=== PATIENT | female | born 1995 | race Caucasian/White ===

== ENCOUNTER 2018-05-29 15:55 | Emergency (ER) | payer OTHER ==
[2018-05-29] MEDS ORDERED: ONDANSETRON HCL INJ/PF 4 MG/2 ML SDV IV ONE (17:46)
[2018-05-29] MEDS ORDERED: NORMAL SALINE 1000 ML 1,000 ML IV ONE (17:46)
[2018-05-29] MEDS ORDERED: KETOROLAC TROMETHAMINE INJ/PF 30 MG/1 ML SDV IV ONE (17:46)
[2018-05-29] MEDS ORDERED: FENTANYL CITRATE INJ/PF 100 MCG/2 ML AMPUL IV ONE (17:46)
--- NOTE | 2018-05-29 17:49 | ER Document Report ---
ED Medical Screen (RME) - General Chief Complaint: Abdominal Pain Stated Complaint: LEFT SIDE PAIN Time Seen by Provider: 05/29/18 17:42 Notes: Chief complaint: Left flank pain History of complain:( obtained from----patient) 22 years old female presents today with left flank pain since this morning around 4:00 with a history of kidney stone. Denies any dysuria frequency urgency denies any fever chills but nauseous. PHYSICAL EXAMINATION: GENERAL: Well-appearing, well-nourished and in no acute distress. HEAD: Atraumatic, normocephalic. EYES: Pupils equal round and reactive to light, extraocular movements intact, conjunctiva are normal. ENT: Nares patent, oropharynx clear without exudates. Moist mucous membranes. NECK: Normal range of motion, supple without lymphadenopathy LUNGS: Breath sounds clear to auscultation bilaterally and equal. No wheezes rales or rhonchi. HEART: Regular rate and rhythm without murmurs ABDOMEN: Abdomen is diffusely tender more so on the left side of the abdomen with guarding. Positive left flank tenderness Dictation was performed using [employer] voice recognition software - Related Data Allergies/Adverse Reactions: No Known Allergies Allergy (Unverified 05/29/18 15:59) Physical Exam - Vital signs Vitals: Temp Pulse Resp BP Pulse Ox 99.1 F 81 16 128/74 H 95 05/29/18 16:23 05/29/18 16:23 05/29/18 16:23 05/29/18 16:23 05/29/18 16:23 Course - Vital Signs Vital signs: Temp Pulse Resp BP Pulse Ox 99.1 F 81 16 128/74 H 95 05/29/18 16:23 05/29/18 16:23 05/29/18 16:23 05/29/18 16:23 05/29/18 16:23
[2018-05-29 18:29] LABS: ABSOLUTE EOSINOPHILS # (AUTO) 0.2 10^3/uL (0.0-0.6); ABSOLUTE MONOCYTES (AUTO) 0.8 10^3/uL (0.1-1.4); ABSOLUTE NEUT (AUTO) 7.5 10^3/uL (1.7-8.2); BASOPHILS % (AUTO) 0.4 % (0-2); EOSINOPHILS % (AUTO) 1.5 % (0-6); HEMATOCRIT 41.2 % (36.0-47.0); LYMPHOCYTES % (AUTO) 18.8 % (13-45); MEAN CORPUSCULAR HEMOGLOBIN 28.3 pg (27.0-33.4); MEAN CORPUSCULAR HGB CONC 33.9 g/dL (32.0-36.0); MEAN CORPUSCULAR VOLUME 84 fl (80-97); MONOCYTES % (AUTO) 7.9 % (3-13); PLATELET COUNT 426 10^3/uL (150-450); RED BLOOD COUNT 4.93 10^6/uL (3.72-5.28); RED CELL DISTRIBUTION WIDTH 14.7 % (11.5-14.0); SEGMENTED NEUTROPHILS % (AUTO) 71.4 % (42-78); TOTAL CELLS COUNTED % (AUTO) 100 %; WHITE BLOOD COUNT 10.4 10^3/uL (4.0-10.5)
[2018-05-29 18:46] LABS: ALANINE AMINOTRANSFERASE 18 U/L (9-52); ALBUMIN 5.1 g/dL (3.5-5.0); ALKALINE PHOSPHATASE 115 U/L (38-126); ANION GAP 12 (5-19); ASPARTATE AMINO TRANSFERASE 20 U/L (14-36); BILIRUBIN,DIRECT 0.2 mg/dL (0.0-0.4); BILIRUBIN,TOTAL 0.4 mg/dL (0.2-1.3); BLOOD UREA NITROGEN 11 mg/dL (7-20); CALCIUM 10.4 mg/dL (8.4-10.2); CARBON DIOXIDE 26 mmol/L (22-30); CHLORIDE 105 mmol/L (98-107); GLUCOSE 88 mg/dL (75-110); LIPASE 384.4 U/L (23-300); POTASSIUM 4.7 mmol/L (3.6-5.0); SODIUM 143.4 mmol/L (137-145); TOTAL PROTEIN 8.1 g/dL (6.3-8.2)
[2018-05-29 19:18] LABS: APPEARANCE,URINE CLEAR; BILIRUBIN,URINE NEGATIVE (NEGATIVE); COLOR,URINE YELLOW; GLUCOSE, URINE NEGATIVE (NEGATIVE); KETONES,URINE TRACE mg/dL (NEGATIVE); LEUKOCYTE ESTERASE,URINE NEGATIVE (NEGATIVE); NITRITE,URINE NEGATIVE (NEGATIVE); PROTEIN,URINE NEGATIVE (NEGATIVE); URINE SPECIFIC GRAVITY 1.012; UROBILINOGEN,URINE NEGATIVE mg/dL (<2.0)
--- NOTE | 2018-05-29 19:50 | RADIOLOGY REPORT (SQ) ---
EXAM DESCRIPTION: CT ABD/PELVIS NO ORAL OR IV COMPLETED DATE/TIME: 05/29/2018 7:33 pm REASON FOR STUDY: Left flank pain COMPARISON: None. TECHNIQUE: CT scan of the abdomen and pelvis performed without intravenous or oral contrast. Images reviewed with lung, soft tissue, and bone windows. Reconstructed coronal and sagittal MPR images revi ewed. All images stored on PACS. All CT scanners at this facility use dose modulation, iterative reconstruction, and/or weight based d osing when appropriate to reduce radiation dose to as low as reasonably achievable (ALARA). [facility]: Dose Right [facility]: CareDose [facility]: Dose Right [facility]: Teradose 4D [facility]: [employer] RADIATION DOSE: CT Rad equipment meets quality standard of care and radiation dose reduction techniq ues were employed. CTDIvol: 6.1 mGy. DLP: 338 mGy-cm.mGy. LIMITATIONS: None. FINDINGS: LOWER CHEST: No significant findings. No nodules or infiltrates. NON-CONTRASTED LIVER, SPLEEN, ADRENALS: Evaluation limited by lack of IV contrast. No identified sign ificant masses. PANCREAS: No masses. No peripancreatic inflammatory changes. GALLBLADDER: No identified stones by CT criteria. No inflammatory changes to suggest cholecystitis. RIGHT KIDNEY AND URETER: No suspicious masses. Assessment limited by lack of IV contrast. No signif icant calcifications. No hydronephrosis or hydroureter. LEFT KIDNEY AND URETER: No suspicious masses. Assessment limited by lack of IV contrast. No signifi cant calcifications. No hydronephrosis or hydroureter. AORTA AND RETROPERITONEUM: No aneurysm. No retroperitoneal masses or adenopathy. BOWEL AND PERITONEAL CAVITY: No obvious masses or inflammatory changes. No free fluid. APPENDIX: Normal. PELVIS, BLADDER, AND ABDOMINAL WALL:No abnormal masses. No free fluid. Bladder normal. BONES: No significant findings. OTHER: No other significant finding. IMPRESSION: NO SIGNIFICANT OR ACUTE PROCESS IN THE ABDOMEN OR PELVIS. COMMENT: Quality ID # [id number]: Final reports with documentation of one or more dose reduction techniques (e.g., Automated exposure control, adjustment of the mA and/or kV according to patient size, use of iterative reconstruction technique) TECHNICAL DOCUMENTATION: JOB ID: [id number] [employer]- All Rights Reserved Reading location - IP/workstation name: [email or web address]
[2018-05-29] MEDS ORDERED: HYDROMORPHONE HCL INJ/PF 2 MG/ML AMPULE IV ONE (21:58)
--- NOTE | 2018-05-29 23:06 | RADIOLOGY REPORT (SQ) ---
US PELVIS HISTORY: Left lower quadrant pain. COMPARISON: None. TECHNIQUE: Grayscale, color Doppler, and spectral Doppler ultrasound images of the pelvis were obtained. FINDINGS: The uterus measures 7.5 x 4.7 x 2.5 cm and is anteverted. The endometrium measures 5 mm in thickness. The cervix is closed and measures 2.9 cm in length. Both ovaries are normal, with the right measuring 3.6 x 2.1 x 2.0 cm and the left measuring 3.5 x 2.5 x 2.5 cm. There is normal color Doppler blood flow in both ovaries. No pelvic free fluid is identified. IMPRESSION: Unremarkable pelvic ultrasound.
[2018-05-29 23:50] VITALS: BP 117/60
--- NOTE | 2018-05-30 04:16 | ER Document Report ---
Entered by LYNNE BALES SCRIBE 05/29/180 Acting as scribe for:BRENNA GREY DO ED General - General Chief Complaint: Abdominal Pain Stated Complaint: LEFT SIDE PAIN Time Seen by Provider: 05/29/18 17:42 Mode of Arrival: Ambulatory Information source: Patient Notes: Patient is a 22 year old female presenting to the emergency department complaining of left flank pain and left lower quadrant pain onset around 0400 yesterday morning. Patient states she has a history of kidney stones and her current symptoms are identical. She states the only difference is the pain is located on the left side when normally, it is located on the right. Patient also complains of nausea, diarrhea and chills. She denies any dysuria, hematuria, urine frequency or urgency, fevers or vomiting. - Related Data Allergies/Adverse Reactions: No Known Allergies Allergy (Unverified 05/29/18 15:59) Past Medical History - General Information source: Patient - Social History Smoking Status: Former Smoker Chew tobacco use (# tins/day): No Frequency of alcohol use: None Drug Abuse: None Family History: Reviewed & Not Pertinent Patient has suicidal ideation: No Patient has homicidal ideation: No Renal/ Medical History: Reports: Hx Kidney Stones Past Surgical History: Reports: Hx Orthopedic Surgery - Right knee Review of Systems - Review of Systems Constitutional: See HPI, Chills EENT: No symptoms reported Cardiovascular: No symptoms reported Respiratory: No symptoms reported Gastrointestinal: See HPI, Abdominal pain, Diarrhea, Nausea Genitourinary: See HPI, Flank pain Female Genitourinary: No symptoms reported Musculoskeletal: No symptoms reported Skin: No symptoms reported Hematologic/Lymphatic: No symptoms reported Neurological/Psychological: No symptoms reported -: Yes All other systems reviewed and negative Physical Exam - Vital signs Vitals: Temp Pulse Resp BP Pulse Ox 99.1 F 81 16 128/74 H 95 05/29/18 16:23 05/29/18 16:23 05/29/18 16:23 05/29/18 16:23 05/29/18 16:23 - Notes Notes: GENERAL: Alert, interacts well. No acute distress. HEAD: Normocephalic, atraumatic. EYES: Pupils equal, round, and reactive to light. Extraocular movements intact. ENT: Oral mucosa moist, tongue midline. NECK: Full range of motion. Supple. Trachea midline. LUNGS: Clear to auscultation bilaterally, no wheezes, rales, or rhonchi. No respiratory distress. HEART: Regular rate and rhythm. No murmurs, gallops, or rubs. ABDOMEN: Soft, LLQ tenderness to palpation, no epigastric tenderness. Non- distended. Bowel sounds present in all 4 quadrants. EXTREMITIES: Moves all 4 extremities spontaneously. NEUROLOGICAL: Alert and oriented x3. Normal speech. PSYCH: Normal affect, normal mood. SKIN: Warm, dry, normal turgor. No rashes or lesions noted. Course - Re-evaluation Re-evalutation: 05/29/18 23:19 CBC unremarkable, CMP grossly unremarkable, lipase mildly elevated at 384.4, urinalysis shows trace ketones and small blood, 0 RBCs, 1 WBC, test is negative, CT scan of the abdomen pelvis is negative for any stone or hydronephrosis. No evidence of inflammation, appendix is identified and normal. Given the left lower quadrant abdominal pain and this female of childbearing age I did perform did order a transvaginal ultrasound looking for ovarian torsion or mass, there is an unremarkable pelvic ultrasound with good blood flow to both ovaries. Patient's pain is currently well controlled, she is not febrile. Discussed with the patient that she possibly has already passed her kidney stone or has a radiopaque stone. There is no sign of infected obstructing stone. Patient will be given advice to use NSAIDs, limited prescription of Percocet, Zofran and Phenergan for nausea and Flomax to help in aiding the passage of the stone. Patient will be discharged home, recommended to return for increasing pain, any fevers or any new or concerning symptoms. - Vital Signs Vital signs: Temp Pulse Resp BP Pulse Ox 98.2 F 60 15 117/60 99 05/29/18 23:49 05/29/18 23:49 05/29/18 23:49 05/29/18 23:49 05/29/18 23:49 - Laboratory Result Diagrams: 05/29/18 17:50 05/29/18 17:50 Laboratory results interpreted by me: 05/29/18 05/29/18 05/29/18 17:50 17:50 19:01 RDW 14.7 H Calcium 10.4 H Albumin 5.1 H Lipase 384.4 H Urine Ketones TRACE H Urine Blood SMALL H Discharge - Discharge Clinical Impression: Abdominal pain, left lower quadrant Condition: Stable Disposition: HOME, SELF-CARE Additional Instructions: Today we did not see any signs of kidney stone on your CAT scan however there was a small amount of blood in your urine. There is no evidence of infection in your urine. Her ultrasound did not show any problems with your ovaries. It is likely that she already passed her kidney stone although it may simply be a small one that does not show up on CAT scan. I prescribed medication to help with the pain, I would also like you to take either ibuprofen 800 mg every 8 hours or Aleve [id number] 2 tablets every 12 hours for pain. Use the Percocet every 4-6 hours as needed for pain that is not controlled by Aleve. Please use the Zofran and Phenergan for nausea. Please take the Flomax once a day until your pain is gone. It will help the kidney stone to pass. Please return for any fevers (temperature 100.4 or greater), uncontrollable pain or uncontrollable vomiting. Prescriptions: Ondansetron [Zofran Odt 4 mg Tablet] 1 - 2 tab PO Q4H PRN #15 tab.rapdis PRN Reason: For Nausea/Vomiting Oxycodone HCl/Acetaminophen [Percocet 5-325 mg Tablet] 1 tab PO Q4H PRN #10 tablet PRN Reason: Promethazine HCl [Phenergan 25 mg Tablet] 25 - 50 mg PO ASDIR PRN #12 tablet PRN Reason: Tamsulosin HCl [Flomax 0.4 mg Cap.sr] 0.4 mg PO DAILY #7 cap.sr.24h Forms: Return to Work Scribe Attestation: 05/30/18 04:16 I personally performed the services described in the documentation, reviewed and edited the documentation which was dictated to the scribe in my presence, and it accurately records my words and actions. I personally performed the services described in the documentation, reviewed and edited the documentation which was dictated to the scribe in my presence, and it accurately records my words and actions.
== END 2018-05-29 23:49 | disposition home or self-care (01) ==
LOC: ER 15:55
DX: R10.32 Left lower quadrant pain (principal); R11.0 Nausea; R19.7 Diarrhea, unspecified; Z87.891 Personal history of nicotine dependence
CPT/HCPCS: 99284; 36415; 83690; 85025; 81025; 80053; 81001; 76830; 93976; 74176; J3010; J1885; J1170; J2405; J7030

== ENCOUNTER 2018-08-04 20:36 | Emergency (ER) | payer OTHER ==
--- NOTE | 2018-08-04 21:22 | ER Document Report ---
ED Medical Screen (RME) - General Chief Complaint: Vag Bleeding, +preg <12wks Stated Complaint: ABDOMINAL CRAMPING Time Seen by Provider: 08/04/18 21:18 Notes: 22-year-old female presents emergency department for vaginal bleeding since Sunday. Patient states she is currently and had some light brown spotting on Sunday and went to the hospital for assessment. She said they did a transvaginal ultrasound and was told she has a viable intrauterine . They also diagnosed her with a UTI and, per patient, placed her on Keflex. Yesterday she had one episode of brown spotting. Then, today she had an episode of vaginal bleeding with clots much worse than the previous spotting. She is unclear of her blood type. She denies any dizziness or lightheadedness, shortness of breath or chest pain, complains of abdominal cramping associated with bleeding. I have greeted and performed a rapid initial assessment of this patient. A comprehensive ED assessment and evaluation of the patient, analysis of test resu lts and completion of medical decision making process will be conducted by an additional ED providers. TRAVEL OUTSIDE OF THE [place] IN LAST 30 DAYS: No - Related Data Allergies/Adverse Reactions: No Known Allergies Allergy (Unverified 05/29/18 15:59) Past Medical History - Social History Frequency of alcohol use: None Drug Abuse: None Renal/ Medical History: Reports: Hx Kidney Stones. Denies: Hx Peritoneal D ialysis Past Surgical History: Reports: Hx Orthopedic Surgery - Right knee Physical Exam - Vital signs Vitals: Temp Pulse Resp BP Pulse Ox 98.0 F 69 16 129/70 H 98 08/04/18 21:07 08/04/18 21:07 08/04/18 21:07 08/04/18 21:07 08/04/18 21:07 - Respiratory Respiratory status: No respiratory distress Chest status: Nontender Breath sounds: Normal Course - Vital Signs Vital signs: Temp Pulse Resp BP Pulse Ox 98.0 F 69 16 129/70 H 98 08/04/18 21:07 08/04/18 21:07 08/04/18 21:07 08/04/18 21:07 08/04/18 21:07
[2018-08-04 22:37] LABS: ABSOLUTE BASOPHILS # (AUTO) 0.1 10^3/uL (0.0-0.2); ABSOLUTE EOSINOPHILS # (AUTO) 0.2 10^3/uL (0.0-0.6); ABSOLUTE LYMPHOCYTES (AUTO) 2.2 10^3/uL (0.5-4.7); ABSOLUTE MONOCYTES (AUTO) 1.1 10^3/uL (0.1-1.4); ABSOLUTE NEUT (AUTO) 7.1 10^3/uL (1.7-8.2); BASOPHILS % (AUTO) 0.5 % (0-2); EOSINOPHILS % (AUTO) 2.2 % (0-6); HEMATOCRIT 39.8 % (36.0-47.0); HEMOGLOBIN 13.6 g/dL (12.0-15.5); LYMPHOCYTES % (AUTO) 20.4 % (13-45); MEAN CORPUSCULAR HGB CONC 34.2 g/dL (32.0-36.0); MEAN CORPUSCULAR VOLUME 85 fl (80-97); MONOCYTES % (AUTO) 10.2 % (3-13); PLATELET COUNT 336 10^3/uL (150-450); RED BLOOD COUNT 4.69 10^6/uL (3.72-5.28); RED CELL DISTRIBUTION WIDTH 15.9 % (11.5-14.0); SEGMENTED NEUTROPHILS % (AUTO) 66.7 % (42-78); TOTAL CELLS COUNTED % (AUTO) 100 %; WHITE BLOOD COUNT 10.6 10^3/uL (4.0-10.5)
[2018-08-04 22:42] LABS: AMORPHOUS SEDIMENT,URINE 1+ /HPF; APPEARANCE,URINE TURBID; BILIRUBIN,URINE NEGATIVE (NEGATIVE); COLOR,URINE DARK YELLOW; GLUCOSE, URINE NEGATIVE (NEGATIVE); KETONES,URINE NEGATIVE (NEGATIVE); LEUKOCYTE ESTERASE,URINE TRACE (NEGATIVE); NITRITE,URINE NEGATIVE (NEGATIVE); PROTEIN,URINE 100 mg/dL (NEGATIVE); URINE SPECIFIC GRAVITY 1.019; UROBILINOGEN,URINE NEGATIVE mg/dL (<2.0)
[2018-08-04 23:06] LABS: ALANINE AMINOTRANSFERASE 22 U/L (9-52); ALBUMIN 4.6 g/dL (3.5-5.0); ALKALINE PHOSPHATASE 94 U/L (38-126); ANION GAP 9 (5-19); ASPARTATE AMINO TRANSFERASE 21 U/L (14-36); BILIRUBIN,DIRECT 0.2 mg/dL (0.0-0.4); BILIRUBIN,TOTAL 0.4 mg/dL (0.2-1.3); BLOOD UREA NITROGEN 10 mg/dL (7-20); CALCIUM 10.1 mg/dL (8.4-10.2); CARBON DIOXIDE 27 mmol/L (22-30); CHLORIDE 104 mmol/L (98-107); GLUCOSE 100 mg/dL (75-110); SODIUM 140.1 mmol/L (137-145); TOTAL PROTEIN 7.6 g/dL (6.3-8.2)
[2018-08-04 23:14] LABS: POTASSIUM 4.6 mmol/L (3.6-5.0)
--- NOTE | 2018-08-05 01:06 | RADIOLOGY REPORT (SQ) ---
EXAM DESCRIPTION: US TRANSVAGINAL COMPLETED DATE/TME: 08/04/2018 21:19 CLINICAL HISTORY: 22 years, Female, vaginal bleeding COMPARISON: 05/29/2018 ultrasound TECHNIQUE: Transverse and longitudinal transvaginal sonographic images of the pelvis in a first trimester patient LIMITATIONS: None. FINDINGS: The uterus measures 7.9 x 4.1 x 4.8 cm. There is no visible intrauterine gestational sac. No detectable heart tones. The endometrium measures 6.7 mm in thickness. The right ovary measures 2.8 x 1.5 x 2.3 cm, the left 3.0 x 2.1 x 1.9 cm. Doppler and spectral analysis with color flow shows arterial and venous flow to both ovaries. No adnexal cyst or mass. No free fluid. IMPRESSION: There is no visible intrauterine gestation at this time. No adnexal cyst or mass. Close obstetric follow-up recommended. Correlate with hCG levels copyright 2010 [employer]- All Rights Reserved
[2018-08-05 03:09] VITALS: BP 127/68
--- NOTE | 2018-08-05 04:27 | ER Document Report ---
Entered by CLEMENTINA CHEATHAM SCRIBE 08/05/18 0255 Acting as scribe for:BRENNA GREY DO ED GI/ - General Chief Complaint: Vag Bleeding, +preg <12wks Stated Complaint: ABDOMINAL CRAMPING Time Seen by Provider: 08/04/18 21:18 Mode of Arrival: Ambulatory Information source: Patient Notes: 22-year-old female G2, P1 who presents to the emergency department today with co mplaints of a 3-day history of vaginal bleeding. Patient states her last menstrual period was on 06/22. Patient states when the bleeding began x3 days ago she was seen at the [facility] where an ultrasound was performed and was told that she was approximately 6 weeks and was currently experiencing a threatened miscarriage. Patient states that the bleeding has become slightly heavier since then and she is now passing clots. Patient denies any nausea or abdominal pain. TRAVEL OUTSIDE OF THE [place] IN LAST 30 DAYS: No - Related Data Allergies/Adverse Reactions: No Known Allergies Allergy (Unverified 05/29/18 15:59) Past Medical History - General Information source: Patient - Social History Smoking Status: Never Smoker Cigarette use (# per day): No Frequency of alcohol use: None Drug Abuse: None Lives with: Family Family History: Reviewed & Not Pertinent Patient has suicidal ideation: No Patient has homicidal ideation: No Renal/ Medical History: Reports: Hx Kidney Stones Past Surgical History: Reports: Hx Orthopedic Surgery - Right knee Review of Systems - Review of Systems Constitutional: No symptoms reported EENT: No symptoms reported Cardiovascular: No symptoms reported Respiratory: No symptoms reported Gastrointestinal: denies: Nausea Genitourinary: No symptoms reported Female Genitourinary: See HPI, , Vaginal bleeding Musculoskeletal: No symptoms reported Skin: No symptoms reported Hematologic/Lymphatic: No symptoms reported Neurological/Psychological: No symptoms reported -: Yes All other systems reviewed and negative Physical Exam - Vital signs Vitals: Temp Pulse Resp BP Pulse Ox 98.0 F 69 16 129/70 H 98 08/04/18 21:07 08/04/18 21:07 08/04/18 21:07 08/04/18 21:07 08/04/18 21:07 - Notes Notes: PHYSICAL EXAM GENERAL: Alert, interacts well. No acute distress. Becomes somewhat tearful after being told about her miscarriage. HEAD: Normocephalic, atraumatic. EYES: Pupils equal, round, and reactive to light. Extraocular movements intact. ENT: Oral mucosa moist, tongue midline. NECK: Full range of motion. Supple. Trachea midline. LUNGS: Clear to auscultation bilaterally, no wheezes, rales, or rhonchi. No respiratory distress. HEART: Regular rate and rhythm. No murmurs, gallops, or rubs. ABDOMEN: Soft, non-tender. Non-distended. Bowel sounds present in all 4 quad rants. No guarding, rigidity, or rebound. EXTREMITIES: Moves all 4 extremities spontaneously. No edema, radial and dorsalis pedis pulses 2/4 bilaterally. No cyanosis. NEUROLOGICAL: Alert and oriented x3. Normal speech. PSYCH: Normal affect, normal mood. SKIN: Warm, dry, normal turgor. No rashes or lesions noted. Course - Re-evaluation Re-evalutation: 08/05/18 02:57 CBC shows slight leukocytosis of 10.6, no anemia, CMP unremarkable, quantitative beta-hCG is 2325, urinalysis shows large blood and trace leukocyte esterase, this does appear to be contaminated and is likely coming from her vaginal bleeding. Patient has no symptoms of urinary tract infection. Transvaginal ultrasound does no longer shows no visible intrauterine gestational sac, no detectable heart tones, no free fluid. This is consistent with a misca rriage. Patient was counseled on amount of bleeding to expect, pelvic rest and need for follow-up with [employer] to trend her hCG. Discharged home. - Vital Signs Vital signs: Temp Pulse Resp BP Pulse Ox 98.0 F 62 16 127/68 H 98 08/04/18 21:07 08/05/18 03:06 08/05/18 03:06 08/05/18 03:06 08/05/18 03:06 - Laboratory Result Diagrams: 08/04/18 22:10 08/04/18 22:10 Laboratory results interpreted by me: 08/04/18 08/04/18 08/04/18 22:10 22:10 22:20 WBC 10.6 H RDW 15.9 H Beta HCG, Quant 2325.70 H Urine Protein 100 H Urine Blood LARGE H Ur Leukocyte Esterase TRACE H Discharge - Discharge Clinical Impression: Miscarriage Condition: Stable Disposition: HOME, SELF-CARE Additional Instructions: Miscarriage You have had a miscarriage (medically called a "spontaneous "). The miscarriage occurred because the fetus did not develop normally. There is nothing you did to cause it, and nothing you could have done to prevent it. About one in four ends in miscarriage, in early it is as early as 50%. You should rest in bed for two or three days. As there is some risk of infection of the uterus, you should not have intercourse for one week (or until okayed by your physician). You might not have a period for six to eight weeks. You should discuss the timeframe for attempting to get again with your physician. Call the doctor or return for re-examination if there is heavy or persistent vaginal bleeding, fever, foul discharge, continued cramping pains, or abdominal pain. Please use ibuprofen (Motrin or Advil) 600-800 mg every 8 hours as needed for pain or fever. You may also use acetaminophen (Tylenol) 1000 mg every 4-6 hours as needed for pain or fever. Please be aware that many medications contain acetaminophen, do not exceed a total of 1000 mg of acetaminophen every 6 hours. Call your doctor if you develop a fever. I personally performed the services described in the documentation, reviewed and edited the documentation which was dictated to the scribe in my presence, and it accurately records my words and actions.
== END 2018-08-05 03:12 | disposition home or self-care (01) ==
LOC: ER 20:36
DX: O03.9 Complete or unspecified spontaneous abortion without complication (principal); Z3A.01 Less than 8 weeks gestation of pregnancy; Z87.442 Personal history of urinary calculi
CPT/HCPCS: 36415; 76817; 80053; 81001; 84702; 85025; 86900; 86901; 93976; 99284

== ENCOUNTER 2018-10-12 00:36 | Emergency (ER) | payer OTHER ==
[2018-10-12 00:48] VITALS: BP 121/69
[2018-10-12 00:57] LABS: APPEARANCE,URINE TURBID; BILIRUBIN,URINE NEGATIVE (NEGATIVE); COLOR,URINE YELLOW; GLUCOSE, URINE NEGATIVE (NEGATIVE); KETONES,URINE NEGATIVE (NEGATIVE); LEUKOCYTE ESTERASE,URINE SMALL (NEGATIVE); NITRITE,URINE NEGATIVE (NEGATIVE); PROTEIN,URINE NEGATIVE (NEGATIVE); URINE SPECIFIC GRAVITY 1.019
[2018-10-12] MEDS ORDERED: CEPHALEXIN 500 MG CAPSULE PO ONE (02:35)
--- NOTE | 2018-10-12 03:06 | ER Document Report ---
ED General - General Chief Complaint: Urinary Problem Stated Complaint: PAINFUL URINATION Time Seen by Provider: 10/12/18 02:34 Notes: Patient is a 23-year-old female without chronic medical problems who presents with complaints of dysuria and hematuria. Patient states that she is had some mild dysuria for the past 48 hours but became concerned today when she urinated gross blood. Patient denies any associated abdominal or flank pain. Dysuria is regarded as being moderate to intense intensity, only present when she urinates. No fever or constitutional symptoms. States this feels very similar to when she has had urinary tract infections in the past. Denies nausea or vomiting. Has not seen her primary care physician regarding today's concerns. TRAVEL OUTSIDE OF THE [place] IN LAST 30 DAYS: No - Related Data Allergies/Adverse Reactions: No Known Allergies Allergy (Unverified 05/29/18 15:59) Past Medical History - General Information source: Patient - Social History Smoking Status: Never Smoker Chew tobacco use (# tins/day): No Frequency of alcohol use: None Drug Abuse: None Lives with: Spouse/Significant other Family History: Reviewed & Not Pertinent Patient has suicidal ideation: No Patient has homicidal ideation: No Renal/ Medical History: Reports: Hx Kidney Stones. Denies: Hx Peritoneal Dialysis Past Surgical History: Reports: Hx Orthopedic Surgery - Right knee Review of Systems - Review of Systems Notes: Constitutional: Negative for fever. HENT: Negative for sore throat. Eyes: Negative for visual changes. Cardiovascular: Negative for chest pain. Respiratory: Negative for shortness of breath. Gastrointestinal: Negative for abdominal pain, vomiting or diarrhea. Genitourinary: Positive for dysuria and hematuria Musculoskeletal: Negative for back pain. Skin: Negative for rash. Neurological: Negative for headaches, weakness or numbness. 10 point ROS negative except as marked above and in HPI. Physical Exam - Vital signs Vitals: Temp Pulse Resp BP Pulse Ox 98.2 F 71 18 121/69 98 10/12/18 00:46 10/12/18 00:46 10/12/18 00:46 10/12/18 00:46 10/12/18 00:46 Interpretation: Normal Notes: PHYSICAL EXAMINATION: GENERAL: Well-appearing, well-nourished and in no acute distress. HEAD: Atraumatic, normocephalic. EYES: Pupils equal round and reactive to light, extraocular movements intact, sclera anicteric, conjunctiva are normal. ENT: nares patent, oropharynx clear without exudates. Moist mucous membranes. NECK: Normal range of motion, supple without lymphadenopathy LUNGS: Breath sounds clear to auscultation bilaterally and equal. No wheezes rales or rhonchi. HEART: Regular rate and rhythm without murmurs ABDOMEN: Soft, nontender, normoactive bowel sounds. No guarding, no rebound. No masses appreciated. EXTREMITIES: Normal range of motion, no pitting or edema. No cyanosis. NEUROLOGICAL: No focal neurological deficits. Moves all extremities spontaneously and on command. PSYCH: Normal mood, normal affect. SKIN: Warm, Dry, normal turgor, no rashes or lesions noted. Course - Re-evaluation Re-evalutation: 10/12/18 03:02 Patient presents with symptoms consistent with an acute cystitis. Vitals wnl. No history of fever, flank pain, or constitution symptoms to suggest ascending infection at this time. Patient is well in appearance, tolerating oral intake without difficulty. No focal abdominal tenderness to suggest acute appendicitis, biliary pathology, acute pancreatitis, tubo-ovarian abscesses, or pelvic inflammatory disease. Patient will be started on antibiotics at this time. A culture has been sent. They will be discharged with return precautions and follow-up recommendations. - Vital Signs Vital signs: Temp Pulse Resp BP Pulse Ox 98.2 F 71 18 121/69 98 10/12/18 00:46 10/12/18 00:46 10/12/18 00:46 10/12/18 00:46 10/12/18 00:46 - Laboratory Laboratory results interpreted by me: 10/12/18 00:40 Urine Blood MODERATE H Urine Urobilinogen 2.0 H Ur Leukocyte Esterase SMALL H Discharge - Discharge Clinical Impression: Cystitis, Dysuria Condition: Good Disposition: HOME, SELF-CARE Additional Instructions: Your urine shows findings consistent with a urinary tract infection. Please take all the antibiotics as directed even if your symptoms have improved. Please follow-up with your primary care physician as needed. Return to emergency room if you develop fever >101F, persistent vomiting, become lethargic, have severe pain in your sides, or any other symptoms that are concerning to you. Prescriptions: Cephalexin Monohydrate [Keflex 500 mg Capsule] 500 mg PO Q6H 5 Days capsule
== END 2018-10-12 03:20 | disposition home or self-care (01) ==
LOC: ER 00:36
DX: N30.91 Cystitis, unspecified with hematuria (principal); R30.0 Dysuria; R10.9 Unspecified abdominal pain
CPT/HCPCS: 36415; 81001; 87086; 99283

== ENCOUNTER 2019-03-10 18:38 | Emergency (ER) | payer OTHER ==
[2019-03-10] MEDS ORDERED: ONDANSETRON 4 MG TAB.RAPDIS PO ONE (19:22)
[2019-03-10] MEDS ORDERED: HYDROCODONE/ACETAMINOPHEN 5-325 MG TABLET PO ONE (19:23)
--- NOTE | 2019-03-10 19:26 | ER Document Report ---
ED Medical Screen (RME) - General Chief Complaint: Abdominal Pain Stated Complaint: ABDOMINAL PAIN, DIARRHEA Time Seen by Provider: 03/10/19 19:18 Mode of Arrival: Ambulatory Information source: Patient Notes: 23-year-old female presented to ED for complaint of severe mid to right upper quadrant abdominal pain there is no lower quadrant tenderness. She states she went to the [facility] doctor on Sunday and was sent to the emergency room [place] for temperature of 102 and they did some blood work and ultrasound and told her they did not know what was wrong weeks put her on some Carafate, Zantac, and Tylenol and discharged her. When she was seen in the emergency room they told her to follow-up with her doctor today she called her doctor today to follow-up and they said she could not get in until March 20. She states she is in too much pain to wait for March 20. Patient is alert oriented respirations regular nonlabored speaking in full sentences. The states she had a pyelonephri tis when she was 20 weeks , a lateral release to her right knee, and a tonsillectomy. She does not smoke drink or use any illicit drugs. I have greeted and performed a rapid initial assessment of this patient. A comprehensive ED assessment and evaluation of the patient, analysis of test results and completion of medical decision making process will be conducted by an additional ED providers. TRAVEL OUTSIDE OF THE [place] IN LAST 30 DAYS: No - Related Data Allergies/Adverse Reactions: No Known Allergies Allergy (Unverified 05/29/18 15:59) Past Medical History Renal/ Medical History: Reports: Hx Kidney Stones. Denies: Hx Peritoneal Dialysis Past Surgical History: Reports: Hx Orthopedic Surgery - Right knee Physical Exam - Vital signs Vitals: Temp Pulse Resp BP Pulse Ox 98.2 F 88 18 155/75 H 98 03/10/19 18:52 03/10/19 18:52 03/10/19 18:52 03/10/19 18:52 03/10/19 18:52 Course - Vital Signs Vital signs: Temp Pulse Resp BP Pulse Ox 98.2 F 88 18 155/75 H 98 03/10/19 18:52 03/10/19 18:52 03/10/19 18:52 03/10/19 18:52 03/10/19 18:52
[2019-03-10 19:57] LABS: ABSOLUTE EOSINOPHILS # (AUTO) 0.1 10^3/uL (0.0-0.6); ABSOLUTE LYMPHOCYTES (AUTO) 2.3 10^3/uL (0.5-4.7); ABSOLUTE MONOCYTES (AUTO) 0.7 10^3/uL (0.1-1.4); ABSOLUTE NEUT (AUTO) 4.1 10^3/uL (1.7-8.2); BASOPHILS % (AUTO) 0.5 % (0-2); EOSINOPHILS % (AUTO) 0.8 % (0-6); HEMATOCRIT 36.6 % (36.0-47.0); HEMOGLOBIN 12.4 g/dL (12.0-15.5); LYMPHOCYTES % (AUTO) 31.5 % (13-45); MEAN CORPUSCULAR HEMOGLOBIN 27.9 pg (27.0-33.4); MEAN CORPUSCULAR HGB CONC 33.8 g/dL (32.0-36.0); MEAN CORPUSCULAR VOLUME 83 fl (80-97); MONOCYTES % (AUTO) 10.2 % (3-13); PLATELET COUNT 264 10^3/uL (150-450); RED BLOOD COUNT 4.43 10^6/uL (3.72-5.28); RED CELL DISTRIBUTION WIDTH 13.9 % (11.5-14.0); TOTAL CELLS COUNTED % (AUTO) 100 %; WHITE BLOOD COUNT 7.2 10^3/uL (4.0-10.5)
[2019-03-10 20:15] LABS: ALBUMIN 4.5 g/dL (3.5-5.0); ALKALINE PHOSPHATASE 103 U/L (38-126); ANION GAP 11 (5-19); ASPARTATE AMINO TRANSFERASE 42 U/L (14-36); BILIRUBIN,DIRECT 0.1 mg/dL (0.0-0.4); BILIRUBIN,TOTAL 0.7 mg/dL (0.2-1.3); BLOOD UREA NITROGEN 11 mg/dL (7-20); CALCIUM 9.6 mg/dL (8.4-10.2); CARBON DIOXIDE 28 mmol/L (22-30); CHLORIDE 102 mmol/L (98-107); GLUCOSE 90 mg/dL (75-110); POTASSIUM 3.9 mmol/L (3.6-5.0); TOTAL PROTEIN 7.8 g/dL (6.3-8.2)
[2019-03-10] MEDS ORDERED: NORMAL SALINE 1000 ML 1,000 ML IV ONE (20:56)
[2019-03-10] MEDS ORDERED: MORPHINE SULFATE 10 MG/ML INJ IV ONE (20:56)
--- NOTE | 2019-03-10 20:57 | ER Document Report ---
ED GI/ - General Chief Complaint: Abdominal Pain Stated Complaint: ABDOMINAL PAIN, DIARRHEA Time Seen by Provider: 03/10/19 19:18 Primary Care Provider: [facility] [Provider Group] - Follow up as needed Mode of Arrival: Ambulatory Notes: Patient is a 23-year-old female that comes emergency department for chief complaint of mid to right upper abdominal pain that has been going on intermittently for a few days. She states that she was seen about 3 days ago and had an ultrasound and blood work, she was placed on Carafate, Zantac, Tylenol. She states that she continues to have pain and today she vomited multiple times so she came in for evaluation. She states she also had a fever at home earlier today. Past medical history of kidney stones and orthopedic surgery, denies abdominal surgeries, denies any other medical history. Denies smoking, alcohol, recreational drugs. TRAVEL OUTSIDE OF THE [place] IN LAST 30 DAYS: No - Related Data Allergies/Adverse Reactions: No Known Allergies Allergy (Unverified 05/29/18 15:59) Past Medical History - General Information source: Patient - Social History Smoking Status: Former Smoker Frequency of alcohol use: None Drug Abuse: None Lives with: Family Family History: Reviewed & Not Pertinent Patient has suicidal ideation: No Patient has homicidal ideation: No Renal/ Medical History: Reports: Hx Kidney Stones. Denies: Hx Peritoneal Dialysis Past Surgical History: Reports: Hx Orthopedic Surgery - Right knee - Immunizations Immunizations up to date: Yes Hx Diphtheria, Pertussis, Tetanus Vaccination: Yes Review of Systems - Review of Systems Constitutional: No symptoms reported EENT: No symptoms reported Cardiovascular: No symptoms reported Respiratory: No symptoms reported Gastrointestinal: See HPI Genitourinary: No symptoms reported Female Genitourinary: No symptoms reported Musculoskeletal: No symptoms reported Skin: No symptoms reported Hematologic/Lymphatic: No symptoms reported Neurological/Psychological: No symptoms reported Physical Exam - Vital signs Vitals: Temp Pulse Resp BP Pulse Ox 98.2 F 88 18 155/75 H 98 03/10/19 18:52 03/10/19 18:52 03/10/19 18:52 03/10/19 18:52 03/10/19 18:52 - Notes Notes: GENERAL: Alert, interacts well. No acute distress. HEAD: Normocephalic, atraumatic. EYES: Pupils equal, round, and reactive to light. Extraocular movements intact. ENT: Oral mucosa moist, tongue midline. Oropharynx unremarkable. LUNGS: Clear to auscultation bilaterally, no wheezes, rales, or rhonchi. No respiratory distress. HEART: Regular rate and rhythm. No murmur ABDOMEN: Some tenderness in the epigastric and right upper quadrants but no severe tenderness, no guarding, lower abdomen is completely benign, bowel sounds present throughout, no distention. GENITOURINARY: Deferred EXTREMITIES: Moves all 4 extremities spontaneously. No edema, normal radial and dorsalis pedis pulses bilaterally. No cyanosis. BACK: No CVA tenderness. No cervical, thoracic, lumbar midline tenderness. No saddle anesthesia, normal distal neurovascular exam. Moves all extremities in full range of motion. NEUROLOGICAL: Alert and oriented x3. Normal speech. Cranial nerves II through XII grossly intact. PSYCH: Normal affect, normal mood. SKIN: Warm, dry, normal turgor. No rashes or lesions noted. Course - Re-evaluation Re-evalutation: On reevaluation after symptom management patient asymptomatic, sleeping, easily aroused. Repeat exam does not suggest acute abdomen. CBC, chemistry, lipase unremarkable. Patency test negative. Urine shows dehydration and possible developing UTI, culture placed. Patient was given hydration. Patient is able to tolerate p.o. without difficulty. Ultrasound of the right upper quadrant shows no abnormality. Based on patient's very specific symptoms worse with food, negative work-up, failure to improve with outpatient antacids, overall picture is suggestive of gallbladder dyskinesis. Because patient's pain is easily controlled and she can tolerate p.o. discussion was made, patient will follow-up with her provider closely for HIDA scan and she was provided with referral to surgical clinic for additional management. Discussed treatment options, treating for UTI, discussed return precautions at length with patient and . They state understanding and agreement with plan. Stable at time of discharge. - Vital Signs Vital signs: Temp Pulse Resp BP Pulse Ox 98.1 F 62 17 127/59 H 99 03/11/19 00:02 03/11/19 00:02 03/11/19 00:02 03/11/19 00:02 03/11/19 00:02 - Laboratory Result Diagrams: 03/10/19 19:40 03/10/19 19:40 Laboratory results interpreted by me: 11/25/19 11/25/19 19:40 22:35 AST 42 H Urine Protein 100 H Urine Ketones 80 H Urine Blood SMALL H Urine Bilirubin SMALL H Urine Urobilinogen 4.0 H Ur Leukocyte Esterase SMALL H Discharge - Discharge Clinical Impression: Right upper quadrant pain Condition: Stable Disposition: HOME, SELF-CARE Additional Instructions: Your evaluation indicates dehydration and a developing urinary tract infection. Take antibiotics cephalexin as prescribed to completion. Your ultrasound of the gallbladder appears normal but your symptoms and failure of response to treatment to antacid therapy is suggestive of gallbladder dyskinesis. Recommendation is for you to obtain a HIDA scan either with primary care or with the follow-up and to follow-up with the surgical clinic for additional management of your symptoms. I recommend avoiding any fatty/greasy/fried foods in your diet because this will make your symptoms a lot worse. Take the pain and nausea medications provided if needed, ibuprofen combined with these can also help a lot. Return if you worsen including severe persistent pain, uncontrolled vomiting, fever, or any other concerning or worsening symptoms. Prescriptions: Cephalexin Monohydrate [Keflex 500 mg Capsule] 500 mg PO BID 5 Days #10 capsule Hydrocodone/Acetaminophen [[place] 5-325 mg Tablet] 1 - 2 tab PO ASDIR #12 tablet Ondansetron [Zofran Odt 4 mg Tablet] 1 - 2 tab PO Q4H PRN #15 tab.rapdis PRN Reason: For Nausea/Vomiting Referrals: [facility] [Provider Group] - Follow up as needed
--- NOTE | 2019-03-10 22:59 | RADIOLOGY REPORT (SQ) ---
US ABDOMEN LIMITED EXAM DATE: 03/10/2019 8:55 PM [employer] HISTORY: Right upper quadrant pain. COMPARISON: None. TECHNIQUE: Grayscale and color Doppler imaging of the right upper quadrant was performed. FINDINGS: The liver has normal echotexture without focal lesion identified. The main portal vein has normal hepatopetal flow. No shadowing gallstones are seen. No pericholecystic fluid or gallbladder wall thickening. The common bile duct is normal caliber. The pancreas is not well-visualized due to overlying bowel gas. No hydronephrosis or shadowing renal stones are identified. The right kidney is normal in size. The visualized portions of the IVC and aorta are patent. IMPRESSION: No acute abdominal findings.
[2019-03-10 23:05] LABS: APPEARANCE,URINE SLIGHTLY-CLOUDY; BILIRUBIN,URINE SMALL (NEGATIVE); GLUCOSE, URINE NEGATIVE (NEGATIVE); KETONES,URINE 80 mg/dL (NEGATIVE); LEUKOCYTE ESTERASE,URINE SMALL (NEGATIVE); NITRITE,URINE NEGATIVE (NEGATIVE); PROTEIN,URINE 100 mg/dL (NEGATIVE); URINE SPECIFIC GRAVITY 1.029
[2019-03-10 23:07] LABS: COLOR,URINE DARK YELLOW
[2019-03-10] MEDS ORDERED: CEPHALEXIN 500 MG CAPSULE PO ONE (23:30)
[2019-03-10] MEDS ORDERED: HYDROCODONE/ACETAMINOPHEN 5-325 MG (6 TAB/ER DISP) PO PRN (23:31)
[2019-03-10] MEDS ORDERED: ONDANSETRON ODT 4 MG TAB (6 TAB/ER DISP) PO PRN (23:31)
[2019-03-11 00:08] VITALS: BP 127/59
== END 2019-03-11 00:09 | disposition home or self-care (01) ==
LOC: ER 18:38
DX: R10.13 Epigastric pain (principal); R10.11 Right upper quadrant pain; R10.811 Right upper quadrant abdominal tenderness; R10.816 Epigastric abdominal tenderness; E86.0 Dehydration; R11.10 Vomiting, unspecified; Z87.891 Personal history of nicotine dependence; Z87.442 Personal history of urinary calculi
CPT/HCPCS: 99284; 96361; 96374; 36415; 87086; 83690; 84703; 85025; 80053; 81001; 76705; S0119; J2270; J7030

== ENCOUNTER 2019-09-09 19:06 | Outpatient (CLI) | payer OTHER ==
[2019-09-09 20:03] LABS: APPEARANCE,URINE SLIGHTLY-CLOUDY; BILIRUBIN,URINE NEGATIVE (NEGATIVE); COLOR,URINE YELLOW; GLUCOSE, URINE NEGATIVE (NEGATIVE); KETONES,URINE 20 mg/dL (NEGATIVE); LEUKOCYTE ESTERASE,URINE TRACE (NEGATIVE); NITRITE,URINE NEGATIVE (NEGATIVE); PROTEIN,URINE 30 mg/dL (NEGATIVE); URINE SPECIFIC GRAVITY 1.014; UROBILINOGEN,URINE NEGATIVE mg/dL (<2.0)
[2019-09-09 20:13] LABS: URINE AMPHETAMINES SCREEN NEGATIVE; URINE BARBITURATES SCREEN NEGATIVE; URINE BENZODIAZEPINES SCREEN NEGATIVE; URINE COCAINE SCREEN NEGATIVE; URINE MARIJUANA (THC) SCREEN NEGATIVE; URINE METHADONE SCREEN NEGATIVE; URINE PHENCYCLIDINE SCREEN NEGATIVE
[2019-09-09] MEDS ORDERED: CEFTRIAXONE INJ 1000 MG VIAL ONE (20:29)
[2019-09-09] MEDS ORDERED: LIDOCAINE 1% INJ-PF (10 MG/ML) 30 ML SDV ONE (20:29)
[2019-09-09] MEDS ORDERED: RINGERS SOLUTION,LACTATED 1,000 ML IV ONE (21:15)
[2019-09-09] MEDS ORDERED: CEFTRIAXONE INJ 1000 MG VIAL IM ONE (21:30)
[2019-09-09] MEDS ORDERED: LIDOCAINE 1% INJ-PF (10 MG/ML) 30 ML SDV IM ONE (21:30)
== END 2019-09-09 21:03 | disposition home or self-care (01) ==
LOC: LC 19:06
PROVIDERS: ATTEND Obstetrics & Gynecology
DX: O23.42 Unspecified infection of urinary tract in pregnancy, second trimester (principal); Z3A.27 27 weeks gestation of pregnancy
CPT/HCPCS: 81001; 80307; 59899; J3490; J0696; 59025